=== PATIENT | female | born 1965 | race Caucasian/White ===

== ENCOUNTER 2017-03-21 12:36 | Emergency (ER) | payer OTHER, MEDICAID ==
[~2017-03-21] VITALS: Ht 154.9 cm; Wt 61.7 kg
[2017-03-21 12:36] VITALS: BP 96/57; PULSE 54; RESP 18; TEMP 97.1; O2SAT 97
--- NOTE | 2017-03-21 12:36 | NUR ---
Patient triaged and placed in waiting room. VSS and patient appears in no acute distress at this time. Accompanied by DAUGHTER, awaiting available bed, and MD notified of need for MSE.
[2017-03-21 13:28] LABS: BASOPHILS % (AUTO) 0.3 % (0.0-2.0); EOSINOPHILS # (AUTO) 0.1 K/uL (0.0-0.4); EOSINOPHILS % (AUTO) 1.5 % (0.0-4.0); HEMATOCRIT 37.8 % (36-48); HEMOGLOBIN 13.1 g/dL (12.0-16.0); LYMPHOCYTES # (AUTO) 0.9 K/uL (1.0-5.5); LYMPHOCYTES % (AUTO) 20.4 % (20.5-51.5); MEAN CORPUSCULAR HEMOGLOBIN 31 pg (27-31); MEAN CORPUSCULAR HGB CONC 35 % (32-36); MEAN CORPUSCULAR VOLUME 89 fL (79.0-98.0); MONOCYTES # (AUTO) 0.4 K/uL (0.0-1.0); MONOCYTES % (AUTO) 8.5 % (1.7-9.3); NEUTROPHILS # (AUTO) 2.9 K/uL (1.8-7.7); NEUTROPHILS % (AUTO) 69.3 % (40.0-70.0); PLATELET COUNT (AUTO) 131 K/uL (130-430); RED BLOOD CELL COUNT(AUTO) 4.25 MIL/uL (4.2-6.2); RED CELL DISTRIBUTION WIDTH 12.6 % (9.0-15.0); WHITE BLOOD COUNT (AUTO) 4.3 K/uL (4.8-10.8)
[2017-03-21 13:31] LABS: CALCIUM 8.4 mg/dL (8.4-11.0); CREATININE 0.75 mg/dL (0.55-1.30); POTASSIUM 3.3 mmol/L (3.5-5.1)
[2017-03-21 13:35] LABS: ALBUMIN 3.2 g/dL (3.4-4.8); TOTAL BILIRUBIN 0.2 mg/dL (0.0-1.0); TOTAL PROTEIN, SERUM 5.9 g/dL (6.4-8.3)
--- NOTE | 2017-03-21 15:01 | NUR ---
CALLED TO COME TO ROOM #8, PT NOT IN WAITING ROOM.
--- NOTE | 2017-03-21 15:25 | NUR ---
CALLED TO COME BACK TO BED #8, UNABLE TO LOCATE PT.
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
--- NOTE | 2017-03-21 15:42 | NUR ---
Pt report received from BRYCE Pratt. Pt c/o N/V/D with fever and chills x 3 days. Pt walking about in room, NAD noted.
--- NOTE | 2017-03-21 15:55 | NUR ---
Dr. Oakes at bedside to assess pt.
[2017-03-21] MEDS ORDERED: POTASSIUM CHLORIDE 20 MEQ TAB.PRT.SR PO ONE (16:15)
[2017-03-21 16:20] VITALS: BP 136/82; PULSE 76; RESP 20; TEMP 98.2; O2SAT 98
--- NOTE | 2017-03-21 16:20 | NUR ---
Patient given written and verbal discharge instructions and verbalizes understanding. ER MD discussed with patient the results and treatment provided. Patient in stable condition. ID arm band removed. Rx of Zofran, Cipro, Tylenol given. Patient educated on pain management and to follow up with PMD. Pain Scale 0/10. Opportunity for questions provided and answered.
== END 2017-03-21 16:20 | disposition home or self-care (01) ==
LOC: SED 12:36
DX: K52.9 Noninfective gastroenteritis and colitis, unspecified (principal); S00.81XA Abrasion of other part of head, initial encounter; D64.9 Anemia, unspecified; E03.9 Hypothyroidism, unspecified; Z90.710 Acquired absence of both cervix and uterus; Z88.8 Allergy status to other drugs, medicaments and biological substances; Z88.5 Allergy status to narcotic agent; X58.XXXA Exposure to other specified factors, initial encounter; Y93.89 Activity, other specified; Y99.8 Other external cause status; Y92.89 Other specified places as the place of occurrence of the external cause
CPT/HCPCS: 36415; 80053; 83690-TC; 84703; 85025; 85610-TC; 85730-TC; 99285

== ENCOUNTER 2017-09-20 20:35 | Emergency (ER) | payer OTHER, MEDICAID ==
[~2017-09-20] VITALS: Ht 154.9 cm; Wt 63.5 kg
[2017-09-20 20:40] VITALS: BP_SYST 108
[2017-09-20] MEDS ORDERED: KETOROLAC TROMETHAMINE 60 MG/2 ML VIAL IM ONE (21:45)
[2017-09-20] MEDS ORDERED: MORPHINE 4 MG/ML INJ. SYRINGE IM ONE (22:30)
[2017-09-20 23:07] VITALS: BP_SYST 110
== END 2017-09-20 23:07 | disposition home or self-care (01) ==
LOC: SED 20:35
DX: M54.16 Radiculopathy, lumbar region (principal); F17.200 Nicotine dependence, unspecified, uncomplicated; Z71.6 Tobacco abuse counseling; Z88.8 Allergy status to other drugs, medicaments and biological substances
CPT/HCPCS: 81025; 96372; 99284; J1885; J2270

== ENCOUNTER 2018-03-04 14:43 | Emergency (ER) | payer OTHER, MEDICAID ==
[~2018-03-04] VITALS: Ht 154.9 cm; Wt 64.4 kg
[2018-03-04 14:52] VITALS: BP_SYST 136
[2018-03-04] MEDS ORDERED: cefTRIAXone 1 GM VIAL IM ONE (18:00)
[2018-03-04] MEDS ORDERED: HYDROcodone/ACETAMIN 5-325 MG TAB (NORCO/ VICODIN) PO ONE (18:00)
[2018-03-04] MEDS ORDERED: LIDOCAINE 1%, 20 ML MDV 20 ML ONE (18:10)
[2018-03-04] MEDS ORDERED: IBUPROFEN 600 MG TABLET PO ONE (18:15)
[2018-03-04 18:27] VITALS: BP_SYST 136
== END 2018-03-04 18:27 | disposition home or self-care (01) ==
LOC: SED 14:43
DX: L03.213 Periorbital cellulitis (principal); H10.9 Unspecified conjunctivitis; Z88.8 Allergy status to other drugs, medicaments and biological substances
CPT/HCPCS: 96372; 99283; J0696; J2001

== ENCOUNTER 2018-03-05 14:54 | Emergency (ER) | payer OTHER, MEDICAID ==
[~2018-03-05] VITALS: Ht 154.9 cm; Wt 65.3 kg
[2018-03-05 15:00] VITALS: BP_SYST 124
[2018-03-05 15:49] LABS: BASOPHILS % (AUTO) 0.7 % (0.0-2.0); EOSINOPHILS # (AUTO) 0.1 K/uL (0.0-0.4); EOSINOPHILS % (AUTO) 1.1 % (0.0-4.0); HEMATOCRIT 40.4 % (36-48); HEMOGLOBIN 13.8 g/dL (12.0-16.0); LYMPHOCYTES # (AUTO) 1.7 K/uL (1.0-5.5); LYMPHOCYTES % (AUTO) 33.2 % (20.5-51.5); MEAN CORPUSCULAR HEMOGLOBIN 30 pg (27-31); MEAN CORPUSCULAR HGB CONC 34 % (32-36); MEAN CORPUSCULAR VOLUME 87 fL (79.0-98.0); MONOCYTES # (AUTO) 0.2 K/uL (0.0-1.0); MONOCYTES % (AUTO) 4.1 % (1.7-9.3); NEUTROPHILS # (AUTO) 3.2 K/uL (1.8-7.7); NEUTROPHILS % (AUTO) 60.9 % (40.0-70.0); PLATELET COUNT (AUTO) 159 K/uL (130-430); RED BLOOD CELL COUNT(AUTO) 4.67 MIL/uL (4.2-6.2); RED CELL DISTRIBUTION WIDTH 13.8 % (9.0-15.0); WHITE BLOOD COUNT (AUTO) 5.2 K/uL (4.8-10.8)
[2018-03-05 15:55] LABS: CALCIUM 9.5 mg/dL (8.4-11.0); CREATININE 0.76 mg/dL (0.55-1.30); POTASSIUM 4.1 mmol/L (3.5-5.1)
[2018-03-05 16:00] LABS: ALBUMIN 3.8 g/dL (3.4-4.8); TOTAL BILIRUBIN 0.2 mg/dL (0.0-1.0)
[2018-03-05 16:17] VITALS: BP_SYST 120
== END 2018-03-05 16:17 | disposition home or self-care (01) ==
LOC: SED 14:54
DX: L03.213 Periorbital cellulitis (principal); H10.9 Unspecified conjunctivitis; F17.210 Nicotine dependence, cigarettes, uncomplicated; R03.0 Elevated blood-pressure reading, without diagnosis of hypertension; Z88.8 Allergy status to other drugs, medicaments and biological substances; Z88.5 Allergy status to narcotic agent
CPT/HCPCS: 36415; 80053; 85025; 99284

== ENCOUNTER 2022-03-21 15:29 | Emergency (ER) | payer OTHER, MEDICAID ==
[~2022-03-21] VITALS: Ht 154.9 cm; Wt 59.0 kg
[2022-03-21 15:45] VITALS: BP_SYST 88
--- NOTE | 2022-03-21 15:45 | NUR ---
Pt to bed 4 for evaluaton. Report given to BRYCE Rhodes who will assume care.
--- NOTE | 2022-03-21 15:56 | NUR ---
pt. got dropped off, here with c/o pain to upper and lower back, states she gets injections for pain management and missed this week dose, here with her dog and behavior is bizzare
--- NOTE | 2022-03-21 16:28 | NUR ---
ER at bedside examining patient.
[2022-03-21] MEDS ORDERED: MORPHINE 4 MG INJ. 4 MG/ML VIAL IM ONE (16:30)
[2022-03-21] MEDS ORDERED: KETOROLAC TROMETHAMINE 60 MG/2 ML VIAL IM ONE (16:30)
--- NOTE | 2022-03-21 16:51 | NUR ---
pt. ambulating around ER with dog and on phone, had pt. change to gown for radiology, pt. was medicated for pain, continues to roam ER to visit with sister who is pt. in another room
[2022-03-21 18:00] VITALS: BP_SYST 123
--- NOTE | 2022-03-21 18:00 | NUR ---
Patient given written and verbal discharge instructions and verbalizes understanding. Dr. Lobo ASHFORD MD discussed with patient the results and treatment provided. Patient in stable condition. ID arm band removed. Patient educated on pain management and to follow up with PMD. Pain Scale 0/10. Opportunity for questions provided and answered.
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
== END 2022-03-21 18:00 | disposition home or self-care (01) ==
LOC: SED 15:29
DX: G89.29 Other chronic pain (principal); M54.50 Low back pain, unspecified; Z88.8 Allergy status to other drugs, medicaments and biological substances; W18.39XA Other fall on same level, initial encounter; Y93.89 Activity, other specified; Y92.89 Other specified places as the place of occurrence of the external cause; Y99.8 Other external cause status
CPT/HCPCS: 72100; 96372; 99284; J1885; J2270